=== PATIENT | female | born 1985 | race Caucasian/White ===

== ENCOUNTER → 2017-01-03 | Outpatient (CLI) | payer OTHER | LOC: FCPNEURO 22:50 | PROVIDERS: ATTEND Student in an Organized Health Care Education/Training Program | DX: G47.33 Obstructive sleep apnea (adult) (pediatric) (principal) ==

== ENCOUNTER 2017-01-16 08:06 | Day surgery (SDC) | payer OTHER ==
[2017-01-16] MEDS ORDERED: LIDOCAINE 1% 2 ML INJ ID PRN (08:41)
[2017-01-16] MEDS ORDERED: LR 1,000 ML IV ONE (08:41)
--- NOTE | 2017-01-16 09:47 | PDGENHP ---
History & Physical Chief Complaint: hx of polyps, fam hx of colon cancer Pertinent Past, Social, Family History: reviewed Relevant Physical Exam: NAD Cardiorespiratory Assessment: RRR. ctab
[2017-01-16] MEDS ORDERED: ONDANSETRON 4 MG/2 ML VIAL IVP PRN (09:56)
[2017-01-16] MEDS ORDERED: ACETAMINOPHEN 500 MG TAB PO PRN (09:56)
[2017-01-16] MEDS ORDERED: fentaNYL 100 MCG/2 ML INJ IVP PRN (09:56)
[2017-01-16] MEDS ORDERED: NALOXONE HCL 0.4 MG/ML INJ IVP PRN (09:56)
--- NOTE | 2017-01-16 09:57 | PDANEPAE ---
ANE History of Present Illness Colonoscopy ANE Past Medical History - Cardiovascular History Hx Hypertension: No Hx Arrhythmias: No Hx Chest Pain: No Hx Coronary Artery / Peripheral Vascular Disease: No Hx CHF / Valvular Disease: No Hx Palpitations: No - Pulmonary History Hx COPD: No Hx Asthma/Reactive Airway Disease: No Hx Recent Upper Respiratory Infection: No Hx Oxygen in Use at Home: No Hx Sleep Apnea: No Sleep Apnea Screening Result - Last Documented: Negative Pulmonary History Comment: poss rosalia- has sleep study next - Neurologic History Hx Cerebrovascular Accident: No Hx Seizures: No Hx Dementia: No - Endocrine History Hx Diabetes: No - Renal History Hx Renal Disorders: No - Liver History Hx Hepatic Disorders: No - Neurological & Psychiatric Hx Hx Neurological and Psychiatric Disorders: Yes Neurological / Psychiatric History Comment: anxiety. depression - Cancer History Hx Cancer: No - Congenital Disorder History Hx Congenital Disorders: No - GI History Hx Gastrointestinal Disorders: Yes Gastrointestinal History Comment: constipation - Other Health History Other Health History: none - Chronic Pain History Chronic Pain: No - Surgical History Prior Surgeries: currrent ect treatments. hernia repair. knee meniscus repair. jae JOHNSON Review of Systems Review of systems is: negative - Exercise capacity METS (RN): 4 METS ANE Patient History - Allergies Allergies/Adverse Reactions: No Known Allergies Allergy (Verified 01/16/17 09:08) - Home Medications Home Medications: Abilify 12/26/16 [Last Taken 01/15/17 20:00] [place] Carbonate 12/26/16 [Last Taken 01/15/17 20:00] Miralax 17 gm (*) 12/26/16 [Last Taken 01/15/17] [place] 5/325 (*) PRN 12/26/16 [Last Taken 01/13/17] Trintellix 12/26/16 [Last Taken 01/15/17 20:00] Tylenol PRN 12/26/16 [Last Taken 01/13/17] Zofran PRN 12/26/16 [Last Taken 01/09/17] - NPO status NPO Since - Liquids (Date): 01/15/17 NPO Since - Liquids (Time): 23:20 NPO Since - Solids (Date): 01/15/17 NPO Since - Solids (Time): 08:00 - Smoking Hx Smoking Status: Never smoked - Family Anes Hx Family Hx Anesthesia Complications: none ANE Labs/Vital Signs - Vital Signs Blood Pressure: 127/87 Heart Rate: 88 Respiratory Rate: 14 O2 Sat (%): 97 Height: 167.64 cm Weight: 90.718 kg ANE Physical Exam - Airway Neck exam: FROM Mallampati Score: Class 2 Mouth exam: normal dental/mouth exam - Pulmonary Pulmonary: clear to auscultation - Cardiovascular Cardiovascular: regular rate and rhythym - ASA Status ASA Status: I ANE Anesthesia Plan Anesthesia Plan: GA with mask
[2017-01-16] MEDS ORDERED: PROPOFOL/EMULSION 500 MG/50 ML BOTTLE IV ONE (10:21)
[2017-01-16] MEDS ORDERED: LIDOCAINE 2% 5 ML SDV ONE (10:22)
[2017-01-16] MEDS ORDERED: SIMETHICONE DROPS 30 ML BOTTLE ONE (10:45)
--- NOTE | 2017-01-16 11:21 | POSTANESTH ---
Post Anesthetic Evaluation Cardiovascular Status: Normal, Stable Respiratory Status: Normal, Stable Level of Consciousness/Mental Status: Can Participate in Eval, Alert and Oriented Pain Control: Adequate, Prn Tx Ordered Nausea/Vomiting Control: Adequate, Prn Tx Ordered Complications Possibly Related to Anesthesia: None Noted
[2017-01-16 11:44] VITALS: O2SAT 98
--- NOTE | 2017-01-16 12:03 | POSTANESTH ---
Post Anesthetic Evaluation Cardiovascular Status: Normal, Stable Respiratory Status: Normal, Stable Level of Consciousness/Mental Status: Can Participate in Eval, Mildly Sleepy, Arousable Pain Control: Adequate, Prn Tx Ordered Nausea/Vomiting Control: Adequate, Prn Tx Ordered
--- NOTE | 2017-01-16 12:07 | GPN ---
[f rep st] PROCEDURE NOTE DATE OF PROCEDURE: 01/16/2017 PROCEDURE: Colonoscopy with snare. INDICATION: Personal history of polyps and family history of colon cancer. Concern for possible Ly nch syndrome. CONSENT: Informed consent was obtained from the patient, after an explanation of risks, benefits, a nd alternatives to the procedure. MEDICATIONS GIVEN: Propofol per Anesthesia. DESCRIPTION OF EXAM: After adequate sedation was achieved, the forward viewing colonoscope was adva nced under direct vision through the anal orifice and as far as the cecum and terminal ilium. Views were adequate. Prep was adequate, although small polyps may have been missed. The patient's shae ance of the procedure was excellent. ESTIMATED BLOOD LOSS: None. COMPLICATIONS: None. FINDINGS: 1. 3 mm polyp in the distal descending colon, removed with cold snare polypectomy and retrieved. I t was placed in jar 1. 2. Prep overall was fair and required extensive washing and cleansing of the entire colon. This wa s surprising as her prep previously 2 years ago was good, although she now is on regular doses of na rcotics. With extensive washing and cleansing, the views were adequate although small polyps may arechiga ve been missed. 3. Internal hemorrhoids which were small were seen. 4. Colon is redundant. IMPRESSION: Single small polyp removed with cold snare and otherwise marginal quality of preparatio n. RECOMMENDATIONS: 1. Tentative plan to repeat colonoscopy in 1 year. [place] [facility]. Will need additiona l prep and adult colonoscope. 2. Resume regular diet. 3. Resume regular medications. 4. Await pathology. 5. Patient has previously seen genetics and is still determining whether she will be the 1st family member undergo genetic testing. /[id number]/MODL
[2017-01-16 13:02] VITALS: BP 131/91; RESP 16
[2017-01-16 14:47] VITALS: PULSE 74; TEMP 98.8
== END 2017-01-16 12:53 | disposition home or self-care (01) ==
LOC: FSGY 08:06
PROVIDERS: ATTEND Internal Medicine
PROC: 0DBM8ZX Excision of Descending Colon, Via Natural or Artificial Opening Endoscopic, Diagnostic (ICD-10-PCS; principal; 2017-01-16 09:30)
DX: D12.4 Benign neoplasm of descending colon (principal); K64.8 Other hemorrhoids; Q43.8 Other specified congenital malformations of intestine
CPT/HCPCS: J2704

== ENCOUNTER → 2017-04-25 | Outpatient (CLI) | payer OTHER ==
--- NOTE | 2017-04-25 10:16 | CPEKG ---
Heart Rate: 64 RR Interval: 938 P-R Interval: 196 QRSD Interval: 86 QT Interval: 420 QTC Interval: 434 P [place]: 41 QRS [place]: 30 T Wave [place]: 75 EKG Severity - NORMAL ECG - EKG Impression: SINUS RHYTHM EKG Impression: persistent juvenile T wave inversion Electronically Signed By: Simeon Tapia 25-Apr-2017 11:59:45
== END ==
LOC: FCP 09:56
PROVIDERS: ATTEND Psychiatry & Neurology Psychiatry
DX: Z13.6 Encounter for screening for cardiovascular disorders (principal)